=== PATIENT | female | born 1995 | race Caucasian/White ===

== ENCOUNTER 2016-09-04 08:19 | Outpatient (CLI) | payer OTHER ==
[2016-03-06 22:34] VITALS: BP 127/64
[2016-09-04 08:35] LABS: BASOPHILS % 0.5 (0.0-1.5); EOSINOPHILS % 1.2 % (0.0-6.8); LYMPHOCYTES # 1.3 # k/uL (0.6-4.0); MEAN CORPUSCULAR HEMOGLOBIN 30.6 pg (28.0-34.0); MONOCYTES # 0.3 # k/uL (0.0-0.9); MONOCYTES % 8.6 % (0.0-11.0); NEUTROPHILS # 2.2 # k/uL (1.4-7.7)
[2016-09-04 09:27] LABS: eGFR (African) > 60; eGFR (Non-African) > 60
[2016-09-04 18:40] LABS: T3-UPTAKE 34.2 % (25.4-41.2)
== END 2016-09-04 08:20 ==
LOC: LAB 08:19
PROVIDERS: ATTEND Nurse Practitioner Psychiatric/Mental Health
DX: Z51.81 Encounter for therapeutic drug level monitoring (principal); Z79.899 Other long term (current) drug therapy
CPT/HCPCS: 36415; 80053; 82306; 84436; 84479; 85025

== ENCOUNTER 2016-11-10 08:15 | Outpatient (CLI) | payer OTHER ==
[2016-03-06 22:34] VITALS: BP 127/64
== END 2016-11-10 08:16 ==
LOC: LAB 08:15
PROVIDERS: ATTEND Nurse Practitioner Psychiatric/Mental Health
DX: Z79.899 Other long term (current) drug therapy (principal)
CPT/HCPCS: 36415; 80164

== ENCOUNTER 2017-01-05 09:54 | Outpatient (CLI) | payer OTHER ==
[2016-03-06 22:34] VITALS: BP 127/64
[2017-01-05 10:09] LABS: BASOPHILS % 0.6 (0.0-1.5); EOSINOPHILS % 0.9 % (0.0-6.8); MEAN CORPUSCULAR HEMOGLOBIN 32.4 pg (28.0-34.0); MEAN CORPUSCULAR VOLUME 90.3 fl (80.0-100.0); MONOCYTES % 8.8 % (0.0-11.0); NEUTROPHILS # 2.6 # k/uL (1.4-7.7)
== END 2017-01-05 09:55 ==
LOC: LAB 09:54
PROVIDERS: ATTEND Nurse Practitioner Psychiatric/Mental Health
DX: F31.0 Bipolar disorder, current episode hypomanic (principal)
CPT/HCPCS: 36415; 85025

== ENCOUNTER 2017-01-12 12:42 | Outpatient (CLI) | payer OTHER ==
[2016-03-06 22:34] VITALS: BP 127/64
[2017-01-12 13:05] LABS: BASOPHILS % 0.9 (0.0-1.5); EOSINOPHILS % 1.5 % (0.0-6.8); MEAN CORPUSCULAR HEMOGLOBIN 32.6 pg (28.0-34.0); MEAN CORPUSCULAR VOLUME 88.9 fl (80.0-100.0)
== END 2017-01-12 12:43 ==
LOC: LAB 12:42
PROVIDERS: ATTEND Nurse Practitioner Psychiatric/Mental Health
DX: F31.0 Bipolar disorder, current episode hypomanic (principal)
CPT/HCPCS: 36415; 85025

== ENCOUNTER 2017-01-20 08:53 | Outpatient (CLI) | payer OTHER ==
[2016-03-06 22:34] VITALS: BP 127/64
[2017-01-20 09:08] LABS: BASOPHILS % 1.3 (0.0-1.5); EOSINOPHILS % 2.1 % (0.0-6.8); MEAN CORPUSCULAR HEMOGLOBIN 32.6 pg (28.0-34.0); MEAN CORPUSCULAR VOLUME 90.4 fl (80.0-100.0); MONOCYTES % 11.3 % (0.0-11.0)
== END 2017-01-20 08:54 ==
LOC: LAB 08:53
PROVIDERS: ATTEND Nurse Practitioner Psychiatric/Mental Health
DX: F31.0 Bipolar disorder, current episode hypomanic (principal)
CPT/HCPCS: 36415; 85025

== ENCOUNTER 2017-02-03 07:12 | Outpatient (CLI) | payer OTHER ==
[2016-03-06 22:34] VITALS: BP 127/64
[2017-02-03 07:24] LABS: MEAN CORPUSCULAR VOLUME 88.5 fl (80.0-100.0)
[2017-02-03 07:25] LABS: BASOPHILS % 0.3 (0.0-1.5); EOSINOPHILS % 1.2 % (0.0-6.8); MONOCYTES % 7.7 % (0.0-11.0); NEUTROPHILS # 4.8 # k/uL (1.4-7.7)
== END 2017-02-03 07:13 ==
LOC: LAB 07:12
PROVIDERS: ATTEND Nurse Practitioner Psychiatric/Mental Health
DX: F31.0 Bipolar disorder, current episode hypomanic (principal)
CPT/HCPCS: 36415; 85025

== ENCOUNTER 2017-02-09 08:16 | Outpatient (CLI) | payer OTHER ==
[2016-03-06 22:34] VITALS: BP 127/64
[2017-02-09 08:30] LABS: BASOPHILS % 0.4 (0.0-1.5); EOSINOPHILS % 1.3 % (0.0-6.8); MEAN CORPUSCULAR HEMOGLOBIN 32.3 pg (28.0-34.0); MEAN CORPUSCULAR VOLUME 87.4 fl (80.0-100.0); MONOCYTES % 8.8 % (0.0-11.0); NEUTROPHILS # 2.3 # k/uL (1.4-7.7)
== END 2017-02-09 10:16 ==
LOC: LAB 08:16
PROVIDERS: ATTEND Nurse Practitioner Psychiatric/Mental Health
DX: F31.0 Bipolar disorder, current episode hypomanic (principal)
CPT/HCPCS: 36415; 85025

== ENCOUNTER 2017-02-16 08:16 | Outpatient (CLI) | payer OTHER ==
[2016-03-06 22:34] VITALS: BP 127/64
[2017-02-16 08:27] LABS: BASOPHILS % 0.4 (0.0-1.5); MEAN CORPUSCULAR HEMOGLOBIN 30.9 pg (28.0-34.0); MEAN CORPUSCULAR VOLUME 88.6 fl (80.0-100.0); MONOCYTES % 6.7 % (0.0-11.0); NEUTROPHILS # 4.9 # k/uL (1.4-7.7)
== END 2017-02-16 08:17 ==
LOC: LAB 08:16
PROVIDERS: ATTEND Nurse Practitioner Psychiatric/Mental Health
DX: F31.0 Bipolar disorder, current episode hypomanic (principal)
CPT/HCPCS: 36415; 85025

== ENCOUNTER 2017-02-23 08:13 | Outpatient (CLI) | payer OTHER ==
[2016-03-06 22:34] VITALS: BP 127/64
[2017-02-23 08:35] LABS: BASOPHILS % 0.9 (0.0-1.5); EOSINOPHILS % 1.8 % (0.0-6.8); MEAN CORPUSCULAR VOLUME 87.1 fl (80.0-100.0); MONOCYTES % 9.2 % (0.0-11.0); NEUTROPHILS # 2.7 # k/uL (1.4-7.7)
== END 2017-02-23 08:14 ==
LOC: LAB 08:13
PROVIDERS: ATTEND Nurse Practitioner Psychiatric/Mental Health
DX: F31.0 Bipolar disorder, current episode hypomanic (principal)
CPT/HCPCS: 36415; 85025

== ENCOUNTER 2017-03-02 08:18 | Outpatient (CLI) | payer OTHER ==
[2016-03-06 22:34] VITALS: BP 127/64
[2017-03-02 08:31] LABS: EOSINOPHILS % 2.5 % (0.0-6.8); MEAN CORPUSCULAR HEMOGLOBIN 31.3 pg (28.0-34.0); MEAN CORPUSCULAR VOLUME 86.5 fl (80.0-100.0); NEUTROPHILS # 1.8 # k/uL (1.4-7.7)
== END 2017-03-02 08:20 ==
LOC: LAB 08:18
PROVIDERS: ATTEND Nurse Practitioner Psychiatric/Mental Health
DX: F31.0 Bipolar disorder, current episode hypomanic (principal)
CPT/HCPCS: 36415; 85025

== ENCOUNTER 2017-07-06 16:15 | Outpatient (CLI) | payer OTHER ==
[2016-03-06 22:34] VITALS: BP 127/64
[2017-07-06 17:00] LABS: APPEARANCE,URINE Clear (CLEAR); COLOR,URINE Yellow (YELLOW); OCCULT BLOOD,URINE Trace-intact (NEGATIVE); UROBILINOGEN URINE 0.2 Eu (0.2-1.0)
== END 2017-07-06 16:16 ==
LOC: LAB 16:15
PROVIDERS: ATTEND Nurse Practitioner Family
DX: R50.9 Fever, unspecified (principal)
CPT/HCPCS: 81002; 87086

== ENCOUNTER 2017-09-02 08:36 | Outpatient (CLI) | payer OTHER ==
[2016-03-06 22:34] VITALS: BP 127/64
[2017-09-02 08:53] LABS: BASOPHILS % 0.5 (0.0-1.5); EOSINOPHILS % 0.7 % (0.0-6.8); MEAN CORPUSCULAR HEMOGLOBIN 31.6 pg (28.0-34.0); MEAN CORPUSCULAR VOLUME 87.8 fl (80.0-100.0); MONOCYTES % 6.8 % (0.0-11.0); NEUTROPHILS # 3.3 # k/uL (1.4-7.7)
== END 2017-09-02 08:37 ==
LOC: LAB 08:36
PROVIDERS: ATTEND Nurse Practitioner Psychiatric/Mental Health
DX: F31.0 Bipolar disorder, current episode hypomanic (principal)
CPT/HCPCS: 36415; 85025

== ENCOUNTER 2017-09-21 08:25 | Outpatient (CLI) | payer OTHER ==
[2016-03-06 22:34] VITALS: BP 127/64
[2017-09-21 08:58] LABS: BASOPHILS % 0.8 (0.0-1.5); EOSINOPHILS % 1.9 % (0.0-6.8); MEAN CORPUSCULAR HEMOGLOBIN 31.3 pg (28.0-34.0); MEAN CORPUSCULAR VOLUME 87.2 fl (80.0-100.0); MONOCYTES % 8.7 % (0.0-11.0); NEUTROPHILS # 4.8 # k/uL (1.4-7.7)
[2017-09-21 09:21] LABS: eGFR (African) > 60; eGFR (Non-African) > 60
[2017-09-21 16:50] LABS: T3-UPTAKE 35.5 % (25.4-41.2)
== END 2017-09-21 08:26 ==
LOC: LAB 08:25
PROVIDERS: ATTEND Nurse Practitioner Family
DX: Z79.899 Other long term (current) drug therapy (principal); Z51.81 Encounter for therapeutic drug level monitoring
CPT/HCPCS: 36415; 80053; 80164; 82306; 84436; 84479; 85025

== ENCOUNTER 2017-09-23 07:27 | Outpatient (CLI) | payer OTHER ==
[2016-03-06 22:34] VITALS: BP 127/64
[2017-09-23 08:25] LABS: eGFR (African) > 60; eGFR (Non-African) > 60
== END 2017-09-23 07:30 ==
LOC: LAB 07:27
PROVIDERS: ATTEND Nurse Practitioner Family
DX: Z79.899 Other long term (current) drug therapy (principal)
CPT/HCPCS: 36415; 80053; 80164; 82306; 84436; 84479

== ENCOUNTER 2017-09-30 07:21 | Outpatient (CLI) | payer OTHER ==
[2016-03-06 22:34] VITALS: BP 127/64
[2017-09-30 08:05] LABS: eGFR (African) > 60; eGFR (Non-African) > 60
[2017-09-30 17:31] LABS: VALPROIC ACID LEVEL 63.9 ug/mL (50.0-100.0)
== END 2017-09-30 07:30 ==
LOC: LAB 07:21
PROVIDERS: ATTEND Nurse Practitioner Family
DX: Z79.899 Other long term (current) drug therapy (principal)
CPT/HCPCS: 36415; 80053; 80164; 80178

== ENCOUNTER 2018-03-09 08:25 | Outpatient (CLI) | payer OTHER ==
[2016-03-06 22:34] VITALS: BP 127/64
== END 2018-03-09 08:26 ==
LOC: LAB 08:25
PROVIDERS: ATTEND Nurse Practitioner Family
DX: Z51.81 Encounter for therapeutic drug level monitoring (principal); Z79.899 Other long term (current) drug therapy
CPT/HCPCS: 36415; 80164